=== PATIENT | male | born 1995 | race Two or more races ===

== ENCOUNTER 2024-08-12 03:59 | Emergency (ER) | payer MEDICAID, SELFPAY ==
[2024-08-12 04:03] VITALS: BP 151/82; PULSE 117; RESP 18; TEMP 36.8; O2SAT 98; BMI 24.3
--- NOTE | 2024-08-12 04:34 | EDRME_ITS ---
Rapid Medical Screening Exam [facility] Arrival date/time: 08/12/24 03:59 29M with history of alcohol abuse presents to ED with withdrawal symptoms including tremors and N/V. Patient had alcohol yesterday. Chief Complaint: General Adult/Misc Complain Vital signs: Vital Signs Temperature 98.2 F 08/12/24 04:03 Pulse Rate 117 H 08/12/24 04:03 Respiratory Rate 18 08/12/24 04:03 Blood Pressure 151/82 H 08/12/24 04:03 Pulse Oximetry (%) 98 08/12/24 04:03 Oxygen Delivery Method Room Air 08/12/24 04:03
[2024-08-12 04:55] LABS: Basophils % (Auto) 1 % (0-2.5); Eosinophils # (Auto) 0.2 Thou/mm3 (0.0-0.5); Eosinophils % (Auto) 2 % (0-10); Hematocrit 42.9 % (41.0-53.0); Hemoglobin 15.1 g/dL (13.5-16.0); Immature Granulocytes % (Auto) 0 % (0-0); Immature Granulocytes Auto 0.02 Thou/mm3 (0.00-0.00); Lymphocytes # (Auto) 0.7 Thou/mm3 (1.0-4.8); Lymphocytes % (Auto) 10 % (10-50); Mean Corpuscular HGB Conc 35.2 g/dl (31.0-37.0); Mean Corpuscular Hemoglobin 32.8 pg (25.0-35.0); Mean Corpuscular Volume 93 fL (80-100); Monocytes # (Auto) 0.7 Thou/mm3 (0.0-0.8); Monocytes % (Auto) 10 % (0-12); Neutrophils # (Auto) 5.5 Thou/mm3 (1.8-7.7); Neutrophils % (Auto) 77 % (37-80); Nucleated Red Blood Cell % 0 /100 WBC (0); Platelet Count 183 Thou/mm3 (140-440); RDW Standard Deviation 46.5 fL (35.1-43.9); White Blood Count 7.2 Thou/mm3 (3.8-10.6)
[2024-08-12] MEDS: THIAMINE 100 MG TABLET PO (04:58)
[2024-08-12] MEDS: DIAZEPAM 5 MG TABLET 10 MG PO (04:58)
[2024-08-12 05:15] LABS: Amphetamine/Methamp Scrn,U Negative (Negative); Barbiturate Screen,Urine Negative (Negative); Benzodiazepines Screen,Urine Negative (Negative); Benzoylecgonine Screen, Ur Negative (Negative); Fentanyl Screen,Urine Negative (Negative); Opiate Screen,Urine Negative (Negative); THC Screen,Urine Negative (Negative)
[2024-08-12 05:15] LABS: Alanine Aminotransferase 140 U/L (10-49); Albumin, Serum 5.4 gm/dL (3.5-5.0); Albumin/Globulin Ratio 1.6 (1.2-2.2); Alcohol, Blood Medical < 10.0 mg/dL (0-10.0); Alkaline Phosphatase 162 U/L (46-116); Anion Gap 7 (7-16); Aspartate Amino Transferase 113 U/L (0-34); BUN/Creatinine Ratio 9 Ratio (12-20); Bilirubin,Total 0.6 mg/dL (0.3-1.2); Blood Urea Nitrogen 6 mg/dL (9-23); Calcium 10.2 mg/dL (8.3-10.6); Calcium (Corrected) 10.2 mg/dL (8.5-10.1); Carbon Dioxide 30.4 mMol/L (20.0-31.0); Chloride 99 mMol/L (98-107); Creatinine (Component) 0.7 mg/dL (0.6-1.3); Estimated Creatinine Clearance 147.9 mL/min (>60); Globulin 3.4 gm/dL (2.3-3.5); Glucose 100 mg/dL (74-106); Lipase 51 U/L (12-53); Magnesium 1.9 mg/dL (1.6-2.6); Osmolality,Calculated 269 (275-295); Potassium 3.8 mMol/L (3.4-5.1); Sodium 136 mMol/L (136-145); Total Protein 8.8 gm/dL (5.7-8.2); eGFR > 60 See Note
--- NOTE | 2024-08-12 06:33 | PD.EDADULT ---
ED General RME/HPI General Chief complaint: General Adult/Misc Complain Stated complaint: ALCOHOL WITHDRAWALS Time Seen by Provider: 08/12/24 06:28 Arrival date/time: 08/12/24 03:59 29-year-old male presents emergency department today reports drinking alcohol daily last drink last evening. Patient reports no fever patient reports nausea. Patient reports no headache dizziness weakness no chest pain or shortness of breath Limitations: no limitations RME / HPI RME / HPI narrative: 08/12/24 03:59 29M with history of alcohol abuse presents to ED with withdrawal symptoms including tremors and N/V. Patient had alcohol yesterday. Related Data Previous Rx's ?Medication ?Instructions ?Recorded naltrexone 50 mg tablet 50 mg PO Q24H #20 tabs 11/24/22 chlordiazepoxide HCl 25 mg capsule 25 mg PO BID #10 caps 03/30/24 ondansetron 4 mg disintegrating 4 mg PO Q8H PRN nausea and 03/31/24 tablet vomiting #10 tabs chlordiazepoxide HCl 25 mg capsule 50 mg (2 x 25 mg) PO TID 4 days 08/12/24 #24 caps Allergies Allergy/AdvReac Type Severity Reaction Status Date / Time No Known Allergies Allergy Unverified 03/30/24 11:17 Review of Systems Review of Systems Systems Reviewed: All systems reviewed, normal except as documented Constitutional Constitutional: Reports system reviewed and no additional complaints, except as documented, Denies fever(s) and Denies headache(s) Eyes Eyes: Reports system reviewed and no additional complaints, except as documented and Denies blurry vision ENT Ears, Nose, Mouth, and Throat: Reports system reviewed and no additional complaints, except as documented, Denies headache(s), Denies nasal congestion and Denies nasal discharge Cardiovascular Cardiovascular: Reports system reviewed and no additional complaints, except as documented, Denies chest pain and Denies dyspnea Respiratory Respiratory: Reports system reviewed and no additional complaints, except as documented, Denies chest congestion, Denies cough and Denies dyspnea Gastrointestinal Gastrointestinal: Reports system reviewed and no additional complaints, except as documented, Denies abdominal pain, Reports nausea and Reports vomiting Integumentary/Breasts Skin/Breast: Reports system reviewed and no additional complaints, except as documented and Denies rash Neurologic Neurologic: Reports system reviewed and no additional complaints, except as documented, Reports as per HPI, Denies headache(s) and Reports tremor(s) Psychiatric Psychiatric: Reports system reviewed and no additional complaints, except as documented and Reports anxiety Past Medical History Social History SMOKING STATUS: Never smoker ED Exam General Limitations: Present no limitations General appearance: Present alert and in no apparent distress Head Head exam: Present atraumatic Eye Eye exam: Present normal appearance, PERRL and EOMI; Absent conjunctival injection ENT ENT exam: Present normal exam, normal oropharynx and mucous membranes moist Neck Neck exam: Present normal inspection, full ROM and trachea midline Chest Chest inspection: Present normal inspection and symmetric chest wall rise Respiratory Respiratory exam: Present normal lung sounds bilaterally; Absent respiratory distress Cardiovascular Cardiovascular exam: Present regular rate, normal rhythm and normal heart sounds; Absent bradycardia, tachycardia, irregular rhythm, systolic murmur, diastolic murmur or JVD Abdominal Exam Abdominal exam: Present soft and normal bowel sounds; Absent distention, tenderness, guarding, rebound or rigidity Extremities Exam Extremities exam: Present normal inspection and full ROM Back Exam Back exam: Present normal inspection and full ROM Neurological Exam Neurological exam: Present alert, oriented X3, CN II-XII intact, normal gait and reflexes normal; Absent motor sensory deficit Psychiatric Psychiatric exam: Present normal affect and normal mood Skin Skin exam: Present warm, dry, intact and normal color; Absent rash Course Quality Measures none Orders Category Date Time Status Alcohol, Blood Medical Stat Lab 08/12/24 04:44 Completed CBC Stat Lab 08/12/24 04:44 Completed CMP [Comprehensive Metabolic Panel] Stat Lab 08/12/24 04:44 Completed Drug Screen,Urine Stat Lab 08/12/24 04:40 Completed Lipase Stat Lab 08/12/24 04:44 Completed Magnesium Stat Lab 08/12/24 04:44 Completed Diazepam [Valium] Med 08/12/24 04:33 Discontinued 10 mg PO X1 ONE Thiamine [Vitamin B-1] Med 08/12/24 04:33 Discontinued 100 mg PO X1 ONE Vital Signs Vital signs: Vital Signs Temperature 98.2 F 08/12/24 04:03 Pulse Rate 117 H 08/12/24 04:03 Respiratory Rate 18 08/12/24 04:03 Blood Pressure 151/82 H 08/12/24 04:03 Pulse Oximetry (%) 98 08/12/24 04:03 Oxygen Delivery Method Room Air 08/12/24 04:03 O2 saturation 98% room air within normal limits MDM Patient data External records reviewed:: [facility] previous records Clinical information provided by:: patient Social determinants that could affect healthcare access:: alcohol use Patient has the following chronic illnesses:: Alcohol abuse How is presenting disease/condition affected by chronic disease/condition?: caused by Evaluation data The following diagnostics were reviewed and interpreted by me:: lab results Lab and/or radiology exams considered but not ordered:: Labs obtained Interpretation Summary: Reviewed by me Medications Medications considered but not ordered:: Given Medication administrations:: Medication Administration History Discontinued Medications Diazepam (Diazepam 5 Mg Tablet) 10 mg PO X1 ONE Stop: 08/12/24 04:34 Last Admin: 08/12/24 04:58 Dose: 10 mg Documented By: CVL Thiamine HCl (Thiamine 100 Mg Tablet) 100 mg PO X1 ONE Stop: 08/12/24 04:34 Last Admin: 08/12/24 04:58 Dose: 100 mg Documented By: CVL Given Consultations Consultation(s) initiated? (list below): No Diagnosis Differential Diagnosis ED Complaint MDM: Alcohol withdrawal, anxiety, stress, methamphetamine abuse Most likely diagnosis given after review of the tests above:: Alcohol abuse Admission Indicated Admission indicated?: not indicated Explain why admission is indicated or not indicated:: No criteria Admission Request Was there a request for admission?: No Disposition Plan Disposition Plan: Discharge Discharge Attestation Discharge Attestation: The patient and all family members were given an opportunity to ask questions and understood the discharge instructions. Discharge instructions specifically effects, indications for sooner follow up or return to the emergency department, and the expected course of current diagnosis. Patient condition: Stable Medical Decision Making [facility] Narrative MDM Narrative: 29-year-old male presents emergency department today reports drinking alcohol daily last drink last evening. Patient reports no fever patient reports nausea. Patient reports no headache dizziness weakness no chest pain or shortness of breath At time my encounter with this patient patient has received a dose of thiamine as well as Valium by my colleague Patient reports that he slept well while in the lobby and reports feeling much improved after taking the medication On exam patient walks with steady gait vital signs repeated patient's heart rate has now decreased to 90 patient has no tremors CIWA score: 3 Patient discharged home in no distress to follow-up with primary care doctor in the next 24 to 48 hours and for any worsening symptoms to return to the ER immediately Differential Diagnosis Differential Diagnosis: Alcohol withdrawal, anxiety, stress, methamphetamine abuse Medical Records Medical records reviewed: Yes I reviewed the patient's medical records. Lab Data Lab results reviewed: Yes I reviewed the patient's lab results. 08/12/24 04:44 08/12/24 04:44 Labs: Lab Results 08/12/24 08/12/24 Range/Units 04:40 04:44 WBC 7.2 (3.8-10.6) Thou/mm3 RBC 4.60 (4.50-5.90) Miln/mm3 Hgb 15.1 (13.5-16.0) g/dL Hct 42.9 (41.0-53.0) % MCV 93 (80-100) fL MCH 32.8 (25.0-35.0) pg MCHC 35.2 (31.0-37.0) g/dl RDW Std Deviation 46.5 H (35.1-43.9) fL Plt Count 183 (140-440) Thou/mm3 Neut % (Auto) 77 (37-80) % Lymph % (Auto) 10 (10-50) % [place] % (Auto) 10 (0-12) % Eos % (Auto) 2 (0-10) % Baso % (Auto) 1 (0-2.5) % Neut # (Auto) 5.5 (1.8-7.7) Thou/mm3 Lymph # (Auto) 0.7 L (1.0-4.8) Thou/mm3 [place] # (Auto) 0.7 (0.0-0.8) Thou/mm3 Eos # (Auto) 0.2 (0.0-0.5) Thou/mm3 Baso # (Auto) 0.0 (0.0-0.2) Thou/mm3 Immature Gran # (Auto) 0.02 H (0.00-0.00) Thou/mm3 Absolute Nucleated RBC 0.00 (0.00-0.00) Thou/mm3 Immature Gran % 0 (0-0) % Nucleated RBC % 0 (0) /100 WBC Sodium 136 (136-145) mMol/L Potassium 3.8 (3.4-5.1) mMol/L Chloride 99 (98-107) mMol/L Carbon Dioxide 30.4 (20.0-31.0) mMol/L Anion Gap 7 (7-16) BUN 6 L (9-23) mg/dL Creatinine 0.7 (0.6-1.3) mg/dL Estim Creat Clear Calc 147.9 (>60) mL/min eGFR > 60 (60 - ) See Note BUN/Creatinine Ratio 9 L (12-20) Ratio Glucose 100 (74-106) mg/dL Calculated Osmolality 269 L (275-295) Calcium 10.2 (8.3-10.6) mg/dL Corrected Calcium 10.2 H (8.5-10.1) mg/dL Magnesium 1.9 (1.6-2.6) mg/dL Total Bilirubin 0.6 (0.3-1.2) mg/dL AST 113 H (0-34) U/L ALT 140 H (10-49) U/L Alkaline Phosphatase 162 H (46-116) U/L Total Protein 8.8 H (5.7-8.2) gm/dL Albumin 5.4 H (3.5-5.0) gm/dL Globulin 3.4 (2.3-3.5) gm/dL Albumin/Globulin Ratio 1.6 (1.2-2.2) Lipase 51 (12-53) U/L Urine Opiates Screen Negative (Negative) Urine Fentanyl Screen Negative (Negative) Ur Barbiturates Screen Negative (Negative) U Amphetamin/Meth Scrn Negative (Negative) U Benzodiazepines Scrn Negative (Negative) U Cocaine Metab Screen Negative (Negative) U Marijuana (THC) Screen Negative (Negative) Ethyl Alcohol < 10.0 (0-10.0) mg/dL Discharge Plan Plan Patient Disposition: HOME (Self Care) Disposition Comment: stable Prescriptions/Referrals Prescriptions/Med Rec: New chlordiazepoxide HCl 25 mg capsule 50 mg PO TID 4 Days Qty: 24 0RF No Action naltrexone 50 mg tablet 50 mg PO Q24H Qty: 20 0RF chlordiazepoxide HCl 25 mg capsule 25 mg PO BID Qty: 10 0RF ondansetron 4 mg tablet,disintegrating 4 mg PO Q8H PRN (Reason: nausea and vomiting) Qty: 10 0RF Referrals: No Primary/Family,Physician [Primary Care Provider] - 08/13/24 Problem List Clinical Impression: Alcohol abuse Patient/Caregiver Discharge Instructions Education Materials: Addiction: Getting Help Additional Instructions: Please follow up with your primary care doctor in the next 24-48hrs for any worsening symptoms return here immediately Print Language: Montserratian Stand Alone Forms: [employer] Award Info., Patient Portal Info Letter PA/SALESMAN/OWNER Supervising Physician PA/SALESMAN/OWNER Supervising Physician: Dr. Márquez
[2024-08-12 06:41] VITALS: PULSE 98; RESP 18; O2SAT 98
== END 2024-08-12 06:42 | disposition home or self-care (01) ==
PROVIDERS: Physician Assistant; Emergency Provider Emergency Medicine
DX: F10.10 Alcohol abuse, uncomplicated (principal); Y90.0 Blood alcohol level of less than 20 mg/100 ml
CPT/HCPCS: 36415; 80053; 80307; 80320; 83690; 83735; 85025; 99283; A9270; G0480

== ENCOUNTER 2025-02-26 23:57 | Emergency (ER) | payer MEDICAID, SELFPAY ==
[2025-02-27] VITALS (7 sets, daily range): BP systolic 116–135; BP diastolic 73–86; PULSE 85–102; RESP 12–17; TEMP 37; O2SAT 95–99; BMI 31.8
--- NOTE | 2025-02-27 00:13 | EDNOTE_ITS ---
ED Alcohol RME/HPI General Chief Complaint: Alcohol Stated Complaint: ETOH Time Seen by Provider: 02/27/25 00:33 Arrival date/time: 02/26/25 23:57 RME / HPI RME / HPI narrative: This section includes all my notes and documentations, including HPI, PE, and ED course. Ousmane Márquez MD HPI: 29 y/o male with Hx of alcohol abuse presents with possible alcohol intoxication. Patient was found by [employer] but was deemed too intoxicated and incoherent for proper arrest. More details from [employer] not available, not present currently. EMS can't provide more details. Due to severely decreased mental status, can't obtain any history from the patient. ROS: to severely decreased mental status, can't obtain any history from the patient. Physical Exam: General: Patient is unresponsive. Eyes: Conjunctivae and lids clear. EOMI. PERRL. ENT: No signs of head trauma. Neck: Supple. No tenderness. Heart: RRR. Lungs: No respiratory distress. Good air movement. No rhonchi, wheezing, rales. Chest: No tenderness. Abdomen: Soft and nontender. Normal bowel sounds. No distension. No rebound or guarding. Back: No tenderness. Skin: Warm and dry. Neuro: Patient completely unresponsive. Cranial Nerves II-XII grossly intact. No obvious peripheral motor deficits. Musculoskeletal: All major joints and bones are not tender with no limited ROM. I reviewed EMS notes. I reviewed all diagnostic test results: My interpretation of the EKG is: Sinus rhythm (88 bpm) with nonspecific ST-T changes. My review of the C-Spine CT report is: NAD. My review of the Chest/Abdomen/Pelvis CT report is: NAD. My review of the Facial Bones CT report is no acute fracture. My review of the Head/Brain CT report is: NAD. Blood tests and urine tests remarkable for CK 652 and serum alcohol 300. At this point, diagnoses include: Alcohol intoxication, Rhabdomyolysis. Treatment here included: Zofran, IV fluid. Patient's mental status returned to baseline, alert and oriented. Was released from senior living about 6 days ago. Has been homeless and has been out in the sun. At 6 AM on 02/27/2025, the care of the patient was transferred to Dr. Mcmahon. Ousmane Márquez MD Related Data Previous Rx's ?Medication ?Instructions ?Recorded naltrexone 50 mg tablet 50 mg PO Q24H #20 tabs 11/24 chlordiazepoxide HCl 25 mg capsule 25 mg PO BID #10 ca ps 03/30/24 ondansetron 4 mg disintegrating 4 mg PO Q8H PRN nausea and 03/31/24 tablet vomiting #10 tabs Allergies Allergy/AdvReac Type Severity Reaction Status Date / Time No Known Allergies Allergy Unverified 03/30/24 11:17 Review of Systems Review of Systems Systems Reviewed: All systems reviewed, normal except as documented Past Medical History Social History SMOKING STATUS: Unknown if ever smoked ALCOHOL: Current ALCOHOL FREQUENCY: 0-2 Drinks per Day ED Exam Narrative Physical exam: Refer to HPI Course Quality Measures none Orders Category Date Time Status EKG (ED ONLY) *Do not use* NOW Care 02/27/25 00:41 Completed Saline [Insert IV] NOW Care 02/27/25 00:40 Active Straight [In and Out Catheter] X1 Care 02/27/25 00:[address] cervical spine wo con Stat Exams 02/27/25 00:[address] chest abdomen pelvis wo Stat Exams 02/27/25 00:[address] facial bones wo con Stat Exams 02/27/25 00:[address] head/brain wo con Stat Exams 02/27/25 00:41 Taken EKG (ED Only) Stat Exams 02/27/25 00:41 Draft ABG [Arterial Blood Gas] Stat Lab 02/27/25 00:54 Completed Acetaminophen Stat Lab 02/27/25 01:06 Completed Alcohol, Blood Medical Stat Lab 02/27/25 01:06 Completed Alcohol, Blood Medical Stat Lab 02/27/25 03:54 Completed Ammonia Stat Lab 02/27/25 01:06 Completed Amylase Stat Lab 02/27/25 01:06 Completed BNP [B-Type Natriuretic Peptide] Stat Lab 02/27/25 01:06 Completed Beta Hydroxybutyrate Stat Lab 02/27/25 01:06 Completed Bilirubin,Direct Stat Lab 02/27/25 01:06 Completed Blood Culture (Lab) Stat Lab 02/27/25 01:00 Received CBC Stat Lab 02/27/25 01:06 Completed CK [Creatine Kinase] Stat Lab 02/27/25 01:06 Completed CK [Creatine Kinase] Stat Lab 02/27/25 03:54 Completed CMP [Comprehensive Metabolic Panel] Stat Lab 02/27/25 01:06 Completed CRP [C-Reactive Protein] Stat Lab 02/27/25 01:06 Completed Drug Screen,Urine Stat Lab 02/27/25 02:32 Completed ESR [Sed Rate (ESR)] Stat Lab 02/27/25 01:06 Completed Free T4 (Free Thyroxine) Stat Lab 02/27/25 01:06 Completed Lactate (Lactic Acid) Stat Lab 02/27/25 01:06 Completed Lipase Stat Lab 02/27/25 01:06 Completed Magnesium Stat Lab 02/27/25 01:06 Completed PT [Prothrombin Time with INR] Stat Lab 02/27/25 01:00 Completed PTT [Partial Thromboplastin Time] Stat Lab 02/27/25 01:00 Completed Procalcitonin Stat Lab 02/27/25 01:06 Completed TSH [Thyroid Stimulating Hormone] Stat Lab 02/27/25 01:06 Completed Troponin I Stat Lab 02/27/25 01:06 Completed UA, C/S IF [Urinalysis, C/S if Indicated] Stat Lab 02/27/25 01:20 Completed Ondansetron Inj [Zofran Inj] Med 02/27/25 00:40 Discontinued 4 mg IVP X1 ONE Sodium Chloride 0.9% 1000 ml [Ns] 1,000 ml Med 02/27/25 00:40 Discontinued IV 999 mls/hr Sodium Chloride 0.9% 1000 ml [Ns] 1,000 ml Med 02/27/25 02:45 Discontinued IV 999 mls/hr Sodium Chloride 0.9% 1000 ml [Ns] 1,000 ml Med 02/27/25 02:46 Discontinued IV 999 mls/hr Vital Signs Vital signs: Vital Signs Temperature 98.6 F 02/27/25 00:23 Pulse Rate 102 H 02/27/25 00:23 Respiratory Rate 17 02/27/25 00:23 Blood Pressure 120/73 02/27/25 00:23 Pulse Oximetry (%) 95 02/27/25 00:23 Oxygen Delivery Method Room Air 02/27/25 00:23 Discharge Plan Prescriptions/Referrals Prescriptions/Med Rec: No Action naltrexone 50 mg tablet 50 mg PO Q24H Qty: 20 0RF chlordiazepoxide HCl 25 mg capsule 25 mg PO BID Qty: 10 0RF ondansetron 4 mg tablet,disintegrating 4 mg PO Q8H PRN (Reason: nausea and vomiting) Qty: 10 0RF Referrals: No Primary/Family,Physician [Primary Care Provider] - In 1 week Problem List Clinical Impression: Alcohol intoxication, Rhabdomyolysis Patient/Caregiver Discharge Instructions Print Language: Serbian Stand Alone Forms: [employer] Award Info., Patient Portal Info Letter Alcohol MDM Narrative MDM Narrative: Scribe Attestation: I, Ifeoma Enamorado, am scribing for and in the presence of Dr. Márquez. Provider Notation: Although this document has been carefully reviewed, there may still be some phonetic and other typographical errors.? These errors are purely grammatical due to imperfections in the software program and should not be construed in any way to? compromise the substance of the patient's medical care during this visit. 29 y/o male with Hx of alcohol abuse presents with alcohol intoxication. Patient was found by [employer] but was deemed too intoxicated and incoherent for proper arrest. No other complaints. Patient data External records reviewed:: [facility] previous records (Reviewed prior ED records from 08/12/24. Patient was seen for Alcohol abuse.) and EMS form Clinical information provided by:: EMS Social determinants that could affect healthcare access:: alcohol use Patient has the following chronic illnesses:: None reported How is presenting disease/condition affected by chronic disease/condition?: no chronic disease Evaluation data The following diagnostics were reviewed and interpreted by me:: lab results, radiology exam(s) and EKG tracing(s) (My interpretation of the EKG is: Sinus rhythm (88 bpm) with nonspecific ST-T changes. Ousmane Márquez MD) Lab and/or radiology exams considered but not ordered:: None Interpretation Summary: I reviewed all diagnostic test results: My interpretation of the EKG is: Sinus rhythm (88 bpm) with nonspecific ST-T changes. My review of the C-Spine CT report is: NAD. My review of the Chest/Abdomen/Pelvis CT report is: NAD. My review of the Facial Bones CT report is no acute fracture. My review of the Head/Brain CT report is: NAD. Blood tests and urine tests remarkable for CK 652 and serum alcohol 300. Medications / Prescriptions Medications or Prescriptions considered but not ordered:: None Medication administrations:: Medication Administration History Discontinued Medications Sodium Chloride (Ns) 1,000 mls @ 999 mls/hr IV .Q1H1M ONE Stop: 02/27/25 01:40 Last Infusion: 02/27/25 02:17 Dose: Infused Documented By: Admin: 02/27/25 01:12 Dose: 999 mls/hr Documented By: DT Sodium Chloride (Ns) 1,000 mls @ 999 mls/hr IV .Q1H1M ONE Stop: 02/27/25 03:45 Last Infusion: 02/27/25 04:29 Dose: Infused Documented By: Admin: 02/27/25 03:06 Dose: 999 mls/hr Documented By: DT Sodium Chloride (Ns) 1,000 mls @ 999 mls/hr IV .Q1H1M ONE Stop: 02/27/25 03:46 Last Infusion: 02/27/25 04:29 Dose: Infused Documented By: Admin: 02/27/25 03:06 Dose: 999 mls/hr Documented By: DT Ondansetron HCl (Ondansetron Inj 2 Mg/Ml Inj 2 Ml) 4 mg IVP X1 ONE; Protocol Stop: 02/27/25 00:41 Last Admin: 02/27/25 01:13 Dose: 4 mg Documented By: DT IV fluid, Zofran Consultations Consultation(s) initiated? (list below): No Diagnosis Differential diagnosis alcohol: alcohol withdrawal delirium, hypomagnesemia, alcohol intoxication, alcohol ketoacidosis, alcohol withdrawal syndrome and alcohol withdrawal seizure Most likely diagnosis given after review of the tests above:: Alcohol intoxication, Rhabdomyolysis Admission Indicated Admission indicated?: not indicated Explain why admission is indicated or not indicated:: Incomplete evaluation and treatment. Admission Request Was there a request for admission?: No Disposition Plan Disposition Plan: other (specify) (Sign-out to Dr. Mcmahon)
--- NOTE | 2025-02-27 00:41 | XR_ITS ---
Examination: CT chest, without intravenous contrast. CT abdomen, without intravenous contrast. CT pelvis, without intravenous contrast. 2-D sagittal and coronal reconstructions. 3-D reconstructions. Date and time of exam:February 27, 2025 0136 hours INDICATIONS: Patient fell today with injury to the chest and abdomen, chest pain abdomen pain CTDI vol (mgy) 12.3 DLP (MGycm)997 Technique: Multiple CT images, 3.0 mm slice thickness, obtained chest, abdomen, pelvis, with the high-resolution 64 slice scanner.. Sagittal and coronal 2-D reconstructions are obtained. 3-D reconstructions Low dose protocols were performed. One or more of the following dose reduction techniques were used; automated exposure control, adjustment of the mA and/or KV according to patient size, use of iterative reconstruction technique. Findings: Thoracic aorta pulmonary arteries intact No pneumothorax or pulmonary contusion or hemothorax Manubrium and body of the sternum thoracic lumbar and sacral segments appear intact Ribs appear intact No liver or splenic or renal laceration No gallstones Abdominal aorta intact, no free bony abdomen or pelvis Negative for pneumoperitoneum Urinary bladder is intact Hips and bones of the pelvis is intact IMPRESSION: Thoracic aorta pulmonary arteries intact No pneumothorax pulmonary contusion or hemothorax No abdominal parenchymal laceration. Abdominal aorta intact No free blood in the abdomen or pelvis
--- NOTE | 2025-02-27 00:41 | XR_ITS ---
Examination: CT maxillofacial, without intravenous contrast. 2-D sagittal reconstructions. 3-D reconstructions. Date and time of exam:February 27, 2025 0136 hours INDICATIONS: Patient fell today with injury to the face, facial pain CTDI: vol (mGy):19.3 DLP: (mGycm):397 Technique: Multiple axial images of maxillofacial region, 3.0 mm slice thickness. 2-D sagittal and coronal reconstructions. 3-D reconstructions. Low dose protocols were performed. One or more of the following dose reduction techniques were used; automated exposure control, adjustment of the mA and/or KV according to patient size, use of iterative reconstruction technique. Findings: Extensive patient motion IMPRESSION: Nondiagnostic study. Repeat.
--- NOTE | 2025-02-27 00:41 | EKG_ITS ---
[facility] Test Date: 2025-02-27 Pat Name: TITA MCADAMS Department: Room: - Gender: Male [employer]ed [employer] Operator: : 1995 Requested By: Ousmane Welsh Order Number: [id number] Reading MD: Ousmane Welsh Measurements Intervals [place] Rate: 88 P: 54 PA: 189 QRS: 92 QRSD: 101 T: 41 QT: 357 QTc: 433 Interpretive Statements SINUS RHYTHM BORDERLINE RIGHT AXIS DEVIATION [QRS AXIS > 90] No previous ECG available for comparison /[id number]/[email or web address]/[id number]
--- NOTE | 2025-02-27 00:41 | XR_ITS ---
Examination: CT cervical spine without contrast 2-D sagittal reconstructions 2-D coronal reconstructions 3-D reconstructions. Exam date and time:February 27, 2025 0138 hours INDICATIONS: Patient fell today with injury to the neck, neck pain CTDI:vol (mGy) 16.2 DLP: (mGycm) 392 Technique: Multiple 2 mm axial sections of the cervical spine have been obtained. The coronal and sagittal reconstructions have been obtained. 3-D reconstructions have been obtained. Low dose protocols were performed. One or more of the following dose reduction techniques were used; automated exposure control, adjustment of the mA and/or KV according to patient size, use of iterative reconstruction technique. Findings: Axial sections demonstrate intact base of the skull. C1 exhibit satisfactory relationship to the odontoid. No acute cervical vertebral body fracture seen. Alignment posterior spinous processes satisfactory. Impression: Patient motion limits this study No cervical fracture is depicted Repeat the study as clinically warranted
--- NOTE | 2025-02-27 00:41 | XR_ITS ---
Examination: CT brain head without contrast. 2-D sagittal coronal reconstructions Date and time of exam:February, 0132 hours INDICATIONS: Patient fell today with injury to the head, head pain CTDI: vol (mGy):54 DLP: (mGycm):1171 Technique: Multiple CT axial sections of the brain have been obtained, 5 mm slice thickness. Contrast has not been administered. 2-D sagittal, coronal reconstructions have been obtained Low dose protocols were performed. One or more of the following dose reduction techniques were used; automated exposure control, adjustment of the mA and/or KV according to patient size, use of iterative reconstruction technique. Findings: No significant ventricular enlargement. Intra-axial or extra-axial hemorrhage density is not seen. No mass effect or midline shift Basal cisterns are not remarkable. Fourth ventricle is midline. Cranial vault intact. Impression: Negative for acute hemorrhage, mass effect or midline shift
[2025-02-27 00:59] LABS: Base Excess 2 (-3-3); HCO3 27 mEq/L (20-26); Inspired Oxygen, FIO2 21 %; O2 Saturation 82 % (91-98); PCO2 45 mmHg (32.0-48.0); pH, Arterial 7.39 (7.35-7.45)
[2025-02-27 01:01] LABS: Allen Test Performed/OK; Puncture Site Right Radial
[2025-02-27 01:02] LABS: PO2 50 mmHg (83-108)
[2025-02-27] MEDS: SODIUM CHLORIDE 0.9% 1000 ML 1,000 ML 999 ML IV ×4 (01:12→07:17)
[2025-02-27] MEDS: ONDANSETRON INJ 2 MG/ML INJ 2 ML 4 MG IVP (01:13)
[2025-02-27 01:24] LABS: Basophils % (Auto) 1 % (0-2.5); Eosinophils # (Auto) 0.1 Thou/mm3 (0.0-0.5); Eosinophils % (Auto) 1 % (0-10); Hematocrit 40.5 % (41.0-53.0); Hemoglobin 14.9 g/dL (13.5-16.0); Immature Granulocytes % (Auto) 1 % (0-0); Immature Granulocytes Auto 0.03 Thou/mm3 (0.00-0.00); Lymphocytes % (Auto) 33 % (10-50); Mean Corpuscular HGB Conc 36.8 g/dl (31.0-37.0); Mean Corpuscular Hemoglobin 30.7 pg (25.0-35.0); Mean Corpuscular Volume 83 fL (80-100); Monocytes # (Auto) 0.3 Thou/mm3 (0.0-0.8); Monocytes % (Auto) 5 % (0-12); Neutrophils # (Auto) 3.7 Thou/mm3 (1.8-7.7); Neutrophils % (Auto) 60 % (37-80); Nucleated Red Blood Cell % 0 /100 WBC (0); Platelet Count 272 Thou/mm3 (140-440); Red Blood Count 4.86 Miln/mm3 (4.50-5.90); White Blood Count 6.2 Thou/mm3 (3.8-10.6)
[2025-02-27 01:26] LABS: Collection Type, Urine Clean Catch; Squamous Epithelial Cell,Urine 0 /hpf (0-5)
[2025-02-27 01:30] LABS: Beta Hydroxybutyrate 0.1 mmol/L (<0.6)
[2025-02-27 01:32] LABS: Bilirubin,Urine Negative (Negative); Blood,Urine Negative (Negative); Clarity,Urine Clear (Clear/Hazy); Color,Urine Colorless (Lt Yel-Yel); Culture Indicated,Urine Not Indicated; Glucose, Urine Negative (Negative); Ketones,Urine Negative (Negative); Leukocyte Esterase,Urine Negative (Negative); Nitrite,Urine Negative (Negative); Protein,Urine Negative (Neg - Trace); RBC,Urine 2 /hpf (0-3); Specific Gravity,Urine 1.009 (1.001-1.035); Urobilinogen,Urine Negative mg/dL (0.0-1.0); WBC,Urine 1 /hpf (0-5)
[2025-02-27 01:34] LABS: INR 0.9 (0.9-1.3); Partial Thromboplastin Time 26.2 Seconds (22.0-36.0); Prothrombin Time 10.3 Seconds (9.0-12.2)
[2025-02-27 01:35] LABS: Sed Rate (ESR) 6 mm/hr (0-15)
[2025-02-27 01:36] LABS: B-Type Natriuretic Peptide < 20 pg/mL (0-100)
[2025-02-27 01:43] LABS: Ammonia < 10 uMol/L (11-32)
--- NOTE | 2025-02-27 02:13 | PRELIM_ITS ---
CT scan of the cervical spine without intravenous contrast (axial sections with sagittal and coronal reformats) February 27, 2025 0132 hours Clinical History: Trauma No prior study is available for comparison. Findings: The evaluation of basiocciput, C1 and C2 are slightly limited due to motion artifact. There is no fracture or traumatic subluxation. The prevertebral soft tissues are unremarkable. Impression: Evaluation of basiocciput, C1 and C2 are slightly limited due to motion artifact. No obvious evidence of fracture or traumatic subluxation. Report Electronically Signed By: Kumar Hidalgo 02/27/2025 2:12:36 AM [EST]
--- NOTE | 2025-02-27 02:21 | PRELIM_ITS ---
CT scan of the head without intravenous contrast (axial sections with sagittal and coronal reformats). February 27, 2025 0132 hours Clinical History: AMS No prior study is available for comparison. Findings: No evidence of intracranial hemorrhage, mass effect or midline shift. The ventricles and CSF spaces are unremarkable. The calvarium is unremarkable. The mastoid air cells and the visualized paranasal sinuses are clear. Impression: No evidence of intracranial hemorrhage, mass effect or midline shift. Report Electronically Signed By: Kumar Hidalgo 02/27/2025 2:20:39 AM [EST]
--- NOTE | 2025-02-27 02:23 | PRELIM_ITS ---
CT maxillofacial without intravenous contrast (axial sections with sagittal and coronal reformats). February 27, 2025 0132 hours Clinical History: Trauma No prior study is available for comparison. Findings: The evaluation is markedly limited due to motion artifact. There is no gross fracture. The maxillary sinus and orbital banks are intact. No fluid levels are seen. No evidence of intraorbital hematoma, proptosis, globe injury or radiodense foreign body. The zygomatic arches and mandible are intact. The visualized soft tissues are unremarkable. Impression: Markedly limited evaluation due to motion artifact. Suggest motion free rescans, as clinically indicated. Report Electronically Signed By: Kumar Hidalgo 02/27/2025 2:23:24 AM [EST]
[2025-02-27 02:28] LABS: Acetaminophen < 2.0 mcg/mL (10.0-20.0); Alanine Aminotransferase 31 U/L (10-49); Albumin, Serum 4.5 gm/dL (3.5-5.0); Albumin/Globulin Ratio 1.7 (1.2-2.2); Alcohol, Blood Medical 300.8 mg/dL (0-10.0); Alkaline Phosphatase 129 U/L (46-116); Amylase 23 U/L (30-118); Anion Gap 12 (7-16); BUN/Creatinine Ratio 10 Ratio (12-20); Bilirubin,Direct < 0.1 mg/dL (0.0-0.3); Bilirubin,Total 0.3 mg/dL (0.3-1.2); Blood Urea Nitrogen 8 mg/dL (9-23); C-Reactive Protein < 0.5 mg/dL (0.0-0.9); Calcium 8.4 mg/dL (8.3-10.6); Calcium (Corrected) 8.4 mg/dL (8.5-10.1); Carbon Dioxide 26.6 mMol/L (20.0-31.0); Chloride 108 mMol/L (98-107); Creatine Kinase 652 U/L (34-171); Creatinine (Component) 0.8 mg/dL (0.6-1.3); Estimated Creatinine Clearance 135.7 mL/min (>60); Free T4 (Free Thyroxine) 1.25 ng/dL (0.89-1.76); Globulin 2.6 gm/dL (2.3-3.5); Glucose 111 mg/dL (74-106); Lipase 36 U/L (12-53); Magnesium 2.4 mg/dL (1.6-2.6); Osmolality,Calculated 291 (275-295); Procalcitonin 0.04 ng/ml (0.0-0.49); Sodium 147 mMol/L (136-145); Thyroid Stimulating Hormone 1.73 uIU/mL (0.55-4.78); Total Protein 7.1 gm/dL (5.7-8.2); Troponin I < 0.002 ng/mL (0.0-0.045); eGFR > 60 See Note
--- NOTE | 2025-02-27 02:48 | PRELIM_ITS ---
CT scan of the chest, abdomen and pelvis without intravenous contrast (axial sections with sagittal and coronal reformats) February 27, 2025 0136 hours Clinical History: Trauma No prior study is available for comparison. Findings: The lungs are clear. There is no pleural effusion or pneumothorax. The aorta is unremarkable on this noncontrast study. There is no mediastinal collection. There is no pericardial effusion The liver, gallbladder, spleen, pancreas, adrenals and kidneys are unremarkable on this noncontrast study. No evidence of bowel dilatation. The urinary bladder is unremarkable. There is no free fluid or free air. No fracture is identified. Impression: No visceral or bony injury to the chest, abdomen or pelvis. Other findings as described above. Report Electronically Signed By: Kumar Hidalgo 02/27/2025 2:48:18 AM [EST]
[2025-02-27 03:07] LABS: Amphetamine/Methamp Scrn,U Negative (Negative); Barbiturate Screen,Urine Negative (Negative); Benzodiazepines Screen,Urine Negative (Negative); Benzoylecgonine Screen, Ur Negative (Negative); Fentanyl Screen,Urine Negative (Negative); Opiate Screen,Urine Negative (Negative); THC Screen,Urine Negative (Negative)
[2025-02-27 04:56] LABS: Alcohol, Blood Medical 257.1 mg/dL (0-10.0); Creatine Kinase 600 U/L (34-171)
--- NOTE | 2025-02-27 07:05 | EDNOTE_ITS ---
Emergency Room Addendum Addendum Narrative: 0600: Care assumed from Dr. Márquez, the previous shift emergency physician. Past medical, surgical, social and family history reviewed. Vitals and home medications reviewed. I will assume the care of the patient at this time, pending final disposition. Please refer to the emergency department record for history and examination from initial visit.?The following addendum documentation note is intended to reflect any pending information, findings, or radiology results not included in the patient?s initial chart. EMS notes reviewed by me. Patients vital signs stable per medics report. Prehospital BS 138. Nursing notes reviewed by me. Vital signs reviewed by me. [facility] medical records reviewed by me. Patient was last evaluated here on 08/12/2024 for alcohol intoxication. 0645: Plan to repeat alcohol level, CK, and IV fluids. Patient has received a total of 3L IVF ordered by previous physician. 0735: Notified by RN that the patient has dressed himself and is requesting to leave. Was advised we are pending repeat alcohol and CK levels. I discussed a great length that without further evaluation and monitoring there may be unforeseen circumstances and deterioration causing permanent bodily harm or as a result of their choice. The patient is alert, oriented and competent at this time. The patient states that they are aware of the serious risks as explained, but they continue to wish to leave against medical advice. Patient was advised to drink plenty of fluids and get CK rechecked tomorrow. Patient was also advised to stop drinking alcohol.
== END 2025-02-27 08:15 | disposition left against medical advice (07) ==
PROVIDERS: Emergency Provider Emergency Medicine
DX: F10.129 Alcohol abuse with intoxication, unspecified (principal); M62.82 Rhabdomyolysis; S19.9XXA Unspecified injury of neck, initial encounter; S09.93XA Unspecified injury of face, initial encounter; S09.90XA Unspecified injury of head, initial encounter; S29.9XXA Unspecified injury of thorax, initial encounter; S39.91XA Unspecified injury of abdomen, initial encounter; R94.31 Abnormal electrocardiogram [ECG] [EKG]; W19.XXXA Unspecified fall, initial encounter; Y90.8 Blood alcohol level of 240 mg/100 ml or more; Z59.02 Unsheltered homelessness; Z53.29 Procedure and treatment not carried out because of patient's decision for other reasons
CPT/HCPCS: 36415; 36600; 70450; 70486; 71250; 72125; 74176; 80053; 80307; 80320; 80329; 81001; 82010; 82140; 82150; 82248; 82550; 82803; 83605; 83690; 83735; 83880; 84145; 84439; 84443; 84484; 85025; 85610; 85652; 85730; 86140; 87040; 93005; 96361; 96374; 99284; J2405; J7030; G0480

== ENCOUNTER 2025-05-10 12:41 | Emergency (ER) | payer MEDICAID, SELFPAY ==
[2025-05-10 12:50] VITALS: PULSE 114; RESP 16; O2SAT 97; BMI 29.6
[2025-05-10 12:53] VITALS: BP 132/78; PULSE 103; RESP 12; TEMP 36.9; O2SAT 98
[2025-05-10] MEDS: SODIUM CHLORIDE 0.9% 1000 ML 1,000 ML 999 ML IV (13:17)
--- NOTE | 2025-05-10 13:22 | PD.EDWOUND ---
ED Wound/Laceration-RME/HPI General Chief Complaint: Wound/Laceration Stated Complaint: ABCESS Time Seen by Provider: 05/10/25 12:51 Source: patient and EMS Arrival date/time: 05/10/25 12:41 Mode of arrival: ambulatory Limitations: no limitations RME / HPI RME / HPI narrative: Patient is a 29-year-old male who is currently homeless. He states he is currently intoxicated. He is here today with a 6-day history of redness, swelling, and pain, at the right upper buttock. He denies any trauma. He states he has had some purulent drainage. Has no fevers or chills. Has abdominal pain, nausea, vomiting he denies any chronic medical illness. He has no other acute complaints. Related Data Previous Rx's ?Medication ?Instructions ?Recorded naltrexone 50 mg tablet 50 mg PO Q24H #20 tabs 11/24/22 chlordiazepoxide HCl 25 mg capsule 25 mg PO BID #10 caps 03/30/24 ondansetron 4 mg disintegrating 4 mg PO Q8H PRN nausea and 03/31/24 tablet vomiting #10 tabs doxycycline hyclate 100 mg tablet 100 mg PO BID 7 days #14 tabs 05/10/25 Allergies Allergy/AdvReac Type Severity Reaction Status Date / Time No Known Allergies Allergy Verified 05/10/25 12:53 Review of Systems Review of Systems Systems Reviewed: All systems reviewed, normal except as documented ED Exam General Limitations: Present no limitations General appearance: Present alert and in no apparent distress Head Head exam: Present atraumatic Eye Eye exam: Present normal appearance, PERRL and EOMI ENT ENT exam: Present normal exam, normal oropharynx and mucous membranes moist Neck Neck exam: Present normal inspection, full ROM and trachea midline Chest Chest inspection: Present normal inspection and symmetric chest wall rise Respiratory Respiratory exam: Present normal lung sounds bilaterally Cardiovascular Cardiovascular exam: Present regular rate, normal rhythm and normal heart sounds Abdominal Exam Abdominal exam: Present soft and normal bowel sounds Extremities Exam Extremities exam: Present normal inspection and full ROM Back Exam Back exam: Present normal inspection and full ROM Neurological Exam Neurological exam: Present alert and oriented X3 Psychiatric Psychiatric exam: Present normal affect and normal mood Skin Skin exam: Present other (There is 6 x 7 cm of mild induration, erythema, and warmth at the right upper buttock provide fluctuance is present.) Course Quality Measures none Orders Category Date Time Status Insert IV NOW Care 05/10/25 13:16 Active CBC Stat Lab 05/10/25 13:10 Completed CMP [Comprehensive Metabolic Panel] Stat Lab 05/10/25 13:10 Completed Wound Culture and Gram Stain Stat Lab 05/10/25 13:30 Received Doxycycline [Vibramycin] Med 05/10/25 13:26 Discontinued 100 mg PO X1 ONE Sodium Chloride 0.9% 1000 ml [Ns] 1,000 ml Med 05/10/25 12:51 Discontinued IV 999 mls/hr Vital Signs Vital signs: Vital Signs Temperature 98.5 F 05/10/25 12:53 Pulse Rate 103 H 05/10/25 12:53 Respiratory Rate 12 05/10/25 12:53 Blood Pressure 132/78 H 05/10/25 12:53 Pulse Oximetry (%) 98 05/10/25 12:53 Oxygen Delivery Method Aerosol Mask 05/10/25 12:53 PROCEDURES: Procedure Comment Verbal consent was obtained. Area was cleansed using chlorhexidine. Abscess was infiltrated using 7 cc of 1% lidocaine. A 1.75 centimeter was made using a #11 blade. Approximately 20 cc of purulent drainage was expressed, culture was obtained. Wound was then irrigated. A dressing was placed over the wound. Procedure was tolerated well without any immediate complication. Wound / Laceration MDM Narrative MDM Narrative:: Patient is a 29-year-old male who is currently homeless. He states he is currently intoxicated. He is here today with a 6-day history of redness, swelling, and pain, at the right upper buttock. He denies any trauma. He states he has had some purulent drainage. Has no fevers or chills. Has abdominal pain, nausea, vomiting he denies any chronic medical illness. He has no other acute complaints. On exam, patient is nontoxic-appearing in no visible signs distress. He has mild tachycardia, vital signs are otherwise stable. I&D was performed of the right buttock abscess. See procedure note for further detail. CBC, CMP, was obtained. Patient was given a single bolus of normal saline for his tachycardia. Patient started on doxycycline. He will be discharged with prescription of this. He was advised to continue antibiotics, apply frequent warm compress, and decreased alcohol use. Return as needed for new or worsening emergent changes. Patient data External records reviewed:: EMS form Clinical information provided by:: patient and EMS Social determinants that could affect healthcare access:: alcohol use Patient has the following chronic illnesses:: n/a How is presenting disease/condition affected by chronic disease/condition?: uneffected by Evaluation data The following diagnostics were reviewed and interpreted by me:: lab results Lab and/or radiology exams considered but not ordered:: n/a Interpretation Summary: n/a Medications / Prescriptions Medications or Prescriptions considered but not ordered:: n/a Medication administrations:: Medication Administration History Discontinued Medications Doxycycline Hyclate (Doxycycline 100 Mg Tablet) 100 mg PO X1 ONE Stop: 05/10/25 13:27 Last Admin: 05/10/25 13:54 Dose: 100 mg Documented By: Sodium Chloride (Ns) 1,000 mls @ 999 mls/hr IV .Q1H1M ONE Stop: 05/10/25 13:51 Last Infusion: 05/10/25 13:44 Dose: Infused Documented By: Admin: 05/10/25 13:17 Dose: 999 mls/hr Documented By: DB see above Consultations Consultation(s) initiated? (list below): No Diagnosis Wound Differential Diagnosis: abscess and avulsion of skin Most likely diagnosis given after review of the tests above:: Abscess, alcohol abuse Admission Indicated Admission indicated?: not indicated Admission Request Was there a request for admission?: No Disposition Plan Disposition Plan: Discharge Discharge Attestation Discharge Attestation: The patient and all family members were given an opportunity to ask questions and understood the discharge instructions. Discharge instructions specifically effects, indications for sooner follow up or return to the emergency department, and the expected course of current diagnosis. Patient condition: Stable Discharge Plan Plan Patient Disposition: HOME (Self Care) Patient condition on transfer: Stable Prescriptions/Referrals Prescriptions/Med Rec: New doxycycline hyclate 100 mg tablet 100 mg PO BID 7 Days Qty: 14 0RF No Action naltrexone 50 mg tablet 50 mg PO Q24H Qty: 20 0RF chlordiazepoxide HCl 25 mg capsule 25 mg PO BID Qty: 10 0RF ondansetron 4 mg tablet,disintegrating 4 mg PO Q8H PRN (Reason: nausea and vomiting) Qty: 10 0RF Problem List Clinical Impression: Abscess, Alcohol abuse Patient/Caregiver Discharge Instructions Additional Instructions: - Allow the abscess to drain and keep the area clean. - Apply frequent warm compress. - Use provided antibiotic as prescribed. Take 1 tab every 12 hours for 7 days. -Decrease alcohol use. - Please return to the emergency room anytime for any worsening emergent changes. Print Language: Indonesian Stand Alone Forms: [employer] Award Info., Patient Portal Info Letter
[2025-05-10 13:34] LABS: Basophils # (Auto) 0.0 Thou/mm3 (0.0-0.2); Basophils % (Auto) 0 % (0-2.5); Eosinophils # (Auto) 0.1 Thou/mm3 (0.0-0.5); Eosinophils % (Auto) 1 % (0-10); Hematocrit 42.0 % (41.0-53.0); Hemoglobin 14.8 g/dL (13.5-16.0); Immature Granulocytes Auto 0.05 Thou/mm3 (0.00-0.00); Lymphocytes # (Auto) 1.3 Thou/mm3 (1.0-4.8); Lymphocytes % (Auto) 12 % (10-50); Mean Corpuscular HGB Conc 35.2 g/dl (31.0-37.0); Mean Corpuscular Hemoglobin 31.3 pg (25.0-35.0); Mean Corpuscular Volume 89 fL (80-100); Monocytes # (Auto) 1.0 Thou/mm3 (0.0-0.8); Monocytes % (Auto) 9 % (0-12); Neutrophils # (Auto) 8.6 Thou/mm3 (1.8-7.7); Neutrophils % (Auto) 78 % (37-80); Nucleated Red Blood Cell # 0.00 Thou/mm3 (0.00-0.00); Nucleated Red Blood Cell % 0 /100 WBC (0); Platelet Count 98 Thou/mm3 (140-440); RDW Standard Deviation 45.5 fL (35.1-43.9); Red Blood Count 4.73 Miln/mm3 (4.50-5.90); White Blood Count 11.0 Thou/mm3 (3.8-10.6)
[2025-05-10] MEDS: DOXYCYCLINE 100 MG TABLET PO (13:54)
[2025-05-10 13:56] LABS: Alanine Aminotransferase 71 U/L (10-49); Albumin, Serum 4.5 gm/dL (3.5-5.0); Albumin/Globulin Ratio 1.5 (1.2-2.2); Alkaline Phosphatase 167 U/L (46-116); Anion Gap 15 (7-16); Aspartate Amino Transferase 86 U/L (0-34); BUN/Creatinine Ratio 13 Ratio (12-20); Bilirubin,Total 0.4 mg/dL (0.3-1.2); Blood Urea Nitrogen 8 mg/dL (9-23); Calcium 8.9 mg/dL (8.3-10.6); Calcium (Corrected) 8.9 mg/dL (8.5-10.1); Carbon Dioxide 27.0 mMol/L (20.0-31.0); Chloride 100 mMol/L (98-107); Creatinine (Component) 0.6 mg/dL (0.6-1.3); Estimated Creatinine Clearance 192.8 mL/min (>60); Globulin 3.1 gm/dL (2.3-3.5); Glucose 113 mg/dL (74-106); Osmolality,Calculated 282 (275-295); Potassium 3.7 mMol/L (3.4-5.1); Sodium 142 mMol/L (136-145); Total Protein 7.6 gm/dL (5.7-8.2); eGFR > 60 See Note
== END 2025-05-10 14:24 | disposition home or self-care (01) ==
LOC: SERX 13:58
PROVIDERS: Physician Assistant Medical; Emergency Provider Family Medicine; PCP Family Medicine
DX: L02.31 Cutaneous abscess of buttock (principal); F10.10 Alcohol abuse, uncomplicated; Z59.00 Homelessness unspecified
CPT/HCPCS: 10060; 36415; 80053; 85025; 87070; 87077; 87186; 87205; 99283; J7030; A9270